=== PATIENT | male | born 1955 | race Caucasian/White ===

== ENCOUNTER 2018-01-28 11:47 | Emergency (ER) | payer OTHER ==
[~2018-01-28] VITALS: Ht 177.8 cm; Wt 99.8 kg
[2018-01-28] MEDS ORDERED: AMLODIPINE BESYL5 MG PO (11:50)
[2018-01-28] MEDS ORDERED: METOPROLOL SUCC50 M1 PO (11:50)
[2018-01-28] MEDS ORDERED: CLINDAMYCIN HC300 MG PO (12:22)
== END 2018-01-28 12:35 | disposition home or self-care (01) ==
LOC: ED 11:47
DX: K61.0 Anal abscess (principal); I10 Essential (primary) hypertension; E66.9 Obesity, unspecified; F17.200 Nicotine dependence, unspecified, uncomplicated; Z88.0 Allergy status to penicillin; Z88.5 Allergy status to narcotic agent; Z79.899 Other long term (current) drug therapy

== ENCOUNTER 2024-10-18 09:25 | Emergency (ER) | payer MEDICARE ==
[~2024-10-18 09:25] MED LIST: AMLODIPINE BESYL5 MG PO; CLINDAMYCIN HC300 MG PO; METOPROLOL SUCC50 M1 PO
== END 2024-10-18 11:43 | disposition left against medical advice (07) ==
LOC: ED 09:25
DX: Z48.00 Encounter for change or removal of nonsurgical wound dressing (principal); Z53.21 Procedure and treatment not carried out due to patient leaving prior to being seen by health care provider